=== PATIENT | male | born 1950 | race Caucasian/White ===

== ENCOUNTER → 2023-09-13 06:21 | Outpatient (REF) | payer MEDICARE, OTHER, SELFPAY ==
[2023-09-13 07:40] LABS: ALT (SGPT) 28 U/L (0-50); AST (SGOT) 27 U/L (17-59); Albumin 4.5 g/dl (3.5-5.0); Alkaline Phosphatase 80 U/L (38-126); Blood Urea Nitrogen 13 mg/dl (9-20); Calcium 9.2 mg/dl (8.4-10.2); Carbon Dioxide 28 mmol/L (22-30); Chloride 103 mmol/L (98-107); Glucose 170 mg/dl (70-99); HDL Cholesterol 39 mg/dl; LDL Cholesterol, Calculated 63 mg/dl; Potassium 4.6 mmol/L (3.5-5.1); Sodium 134 mmol/L (135-145); Total Bilirubin 1.4 mg/dl (0.2-1.3); Total Cholesterol 131 mg/dl (50-199); Total Protein 7.1 g/dl (6.3-8.2); Triglyceride 147 mg/dl (10-149); Very Low Density Lipoprotein 29 mg/dl (0-30); eGFR > 60.00
== END ==
LOC: REG 06:21
PROVIDERS: ATTENDING PHYSICIAN Internal Medicine
DX: Z00.00 Encounter for general adult medical examination without abnormal findings (principal); E11.9 Type 2 diabetes mellitus without complications; I35.0 Nonrheumatic aortic (valve) stenosis; E78.5 Hyperlipidemia, unspecified; R35.1 Nocturia; F41.9 Anxiety disorder, unspecified; Z68.26 Body mass index [BMI] 26.0-26.9, adult; Z23 Encounter for immunization; Z12.11 Encounter for screening for malignant neoplasm of colon; Z28.21 Immunization not carried out because of patient refusal
CPT/HCPCS: 36415; 80053; 80061; 83036

== ENCOUNTER → 2023-12-07 06:21 | Outpatient (REF) | payer MEDICARE, OTHER, SELFPAY ==
[2023-12-07 07:12] LABS: % Basophils 0.8 % (0-2); % Immature Granulocytes 0.3 % (0-0.5); % Lymphocytes 29.3 % (20.5-51.1); % Monocytes 11.6 % (1.7-9.3); Absolute Basophils 0.1 10^3/uL (0-0.2); Absolute Eosinophils 0.1 10^3/uL (0-0.7); Absolute Lymphocytes 2.1 10^3/uL (1.2-3.4); Absolute Monocytes 0.8 10^3/uL (0.1-0.6); Hematocrit 42.1 % (39.0-52.0); Hemoglobin 14.1 g/dL (13.0-18.0); Mean Corp Hgb Conc. 33.5 g/dL (33.0-37.0); Mean Corpuscular Hgb 30.5 pg (27.0-31.0); Mean Corpuscular Volume 90.9 fL (80.0-94.0); Nucleated Red Blood Cells % 0 % (-); Platelet Count 195 10^3/uL (130-400); Red Blood Cell Count 4.63 10^6/uL (4.70-6.10); Red Cell Dist. Width 12.1 % (11.5-14.5); White Blood Cell Count 7.1 10^3/uL (4.8-10.8)
[2023-12-07 07:48] LABS: Microalbumin, Random Urine 0.6 mg/dl (0.6-1.7); Microalbumin/creatinine Ratio 5.9 mg/g
[2023-12-07 08:33] LABS: PSA, Total - Screen 0.75 ng/ml (0.0-4.0); TSH Reflex To Free T4 2.53 uIU/ml (0.47-4.68)
[2023-12-07 08:46] LABS: Glycohemoglobin (HgbA1c) 7.9 % (4.0-5.6)
[2023-12-07 09:21] LABS: ALT (SGPT) 25 U/L (0-50); AST (SGOT) 32 U/L (17-59); Alkaline Phosphatase 82 U/L (38-126); Blood Urea Nitrogen 14 mg/dl (9-20); Calcium 9.7 mg/dl (8.4-10.2); Carbon Dioxide 27 mmol/L (22-30); Chloride 100 mmol/L (98-107); Glucose 147 mg/dl (70-99); Potassium 5.4 mmol/L (3.5-5.1); Sodium 137 mmol/L (135-145); Total Bilirubin 1.7 mg/dl (0.2-1.3); Total Protein 7.7 g/dl (6.3-8.2); eGFR > 60.00
== END ==
LOC: REG 06:21
PROVIDERS: ATTENDING PHYSICIAN Internal Medicine
DX: E11.9 Type 2 diabetes mellitus without complications (principal); E78.5 Hyperlipidemia, unspecified; R35.1 Nocturia
CPT/HCPCS: 36415; 80053; 82043; 82570; 83036; 84443; 85025; G0103

== ENCOUNTER → 2023-12-15 10:08 | Outpatient (REF) | payer MEDICARE, OTHER, SELFPAY ==
[2023-12-15 12:10] LABS: ALT (SGPT) 24 U/L (0-50); AST (SGOT) 28 U/L (17-59); Alkaline Phosphatase 85 U/L (38-126); Blood Urea Nitrogen 19 mg/dl (9-20); Calcium 9.9 mg/dl (8.4-10.2); Carbon Dioxide 29 mmol/L (22-30); Chloride 98 mmol/L (98-107); Glucose 195 mg/dl (70-99); Potassium 5.1 mmol/L (3.5-5.1); Sodium 137 mmol/L (135-145); Total Bilirubin 1.7 mg/dl (0.2-1.3); Total Protein 7.6 g/dl (6.3-8.2); eGFR > 60.00
== END ==
LOC: REG 10:08
PROVIDERS: ATTENDING PHYSICIAN Internal Medicine
DX: E87.5 Hyperkalemia (principal)
CPT/HCPCS: 36415; 80053

== ENCOUNTER 2024-02-02 20:06 | Emergency (ER) | payer MEDICARE, OTHER, SELFPAY ==
[2024-02-02 20:10] VITALS: BP 123/65
--- NOTE | 2024-02-02 20:14 | ED.PDOC.TRB ---
ED Provider Triage
-
Patient seen by provider in Triage?: Seen in Triage
:
A medical screening examination has been initiated by a qualified medical provider. Based on the assessment performed at this time, it has been determined that an emergent medical condition may exist and the patient has been informed that further
medical evaluation and possible additional diagnostic testing may be needed.
Patient is a 73-year-old male with history of kidney stones last kidney stone was 1989. Patient started with right flank pain today around 12 PM associate with nausea and vomiting consistent with similar pain in the past. No fever or chills. No
radiation or testicular pain. he went to urgent care was sent here.
Patient in no acute distress, afebrile basic labs ordered along with CAT scan abdomen without contrast and urinalysis.
[2024-02-02 20:24] LABS: % Basophils 0.3 % (0-2); % Immature Granulocytes 0.3 % (0-0.5); % Lymphocytes 9.1 % (20.5-51.1); % Neutrophils 82.3 % (42.2-75.2); Absolute Lymphocytes 1.1 10^3/uL (1.2-3.4); Absolute Neutrophils 9.8 10^3/uL (1.4-6.5); Hematocrit 37.3 % (39.0-52.0); Hemoglobin 13.1 g/dL (13.0-18.0); Mean Corp Hgb Conc. 35.1 g/dL (33.0-37.0); Mean Corpuscular Hgb 30.6 pg (27.0-31.0); Mean Corpuscular Volume 87.1 fL (80.0-94.0); Mean Platelet Volume 11.2 fL (7.4-10.4); Nucleated Red Blood Cells % 0 % (-); Platelet Count 192 10^3/uL (130-400); Red Blood Cell Count 4.28 10^6/uL (4.70-6.10); Red Cell Dist. Width 12.1 % (11.5-14.5); White Blood Cell Count 11.9 10^3/uL (4.8-10.8)
[2024-02-02 20:42] LABS: ALT (SGPT) 25 U/L (0-50); AST (SGOT) 28 U/L (17-59); Albumin 4.7 g/dl (3.5-5.0); Alkaline Phosphatase 75 U/L (38-126); Blood Urea Nitrogen 18 mg/dl (9-20); Calcium 9.8 mg/dl (8.4-10.2); Carbon Dioxide 26 mmol/L (22-30); Chloride 98 mmol/L (98-107); Glucose 201 mg/dl (70-99); Sodium 137 mmol/L (135-145); Total Bilirubin 1.3 mg/dl (0.2-1.3); eGFR > 60.00
[2024-02-02 22:56] VITALS: BP 154/77
[2024-02-02 23:00] LABS: Urine Albumin Negative (Neg - Trace); Urine Bilirubin Negative (Negative); Urine Character Clear (Clear); Urine Color Yellow; Urine Glucose Trace (Negative); Urine Ketone Negative (Negative); Urine Leukocyte Negative (Negative); Urine Nitrite Negative (Negative); Urine Occult Blood 3+ (Negative); Urine Urobilinogen Negative (Neg - 1+)
--- NOTE | 2024-02-02 23:02 | ED.GENMED ---
History of Present Illness
General
Chief Complaint: Flank Pain
Source: patient
Exam Limitations: none
Time Seen by Provider: 02/02/24 22:34
History of Present Illness
History of Present Illness:
73-year-old male presents after he had acute onset of right flank pain earlier today. Went to urgent care and got some pain medication nausea medication because he was vomiting. Patient's pain seem better but around 6:00 the pain came back with a
vengeance it was severe. On his way over and on arrival his pain resolved. He now feels much better. Further nausea or vomiting. No fevers.
Past History
Past History
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
ED Past Surgical History: Orthopedic
Social History
Tobacco: Non-smoker
Alcohol: None
Drug: None
Living: with family
Family History
Family History: Other (Noncontributory)
Phy Exam
Physical Exam
Physical Exam:
CONSTITUTIONAL Vital signs reviewed, Patient alert and oriented to person, place and time. Well-appearing
HEAD atraumatic, normocephalic.
EYES eyelids normal to inspection, Extraocular muscles intact, Conjunctiva normal, Sclera normal.
NECK normal range of motion, Trachea midline, no jugular venous distention.
RESP no respiratory distress
BACK No obvious deformities, no flank pain
Abdomen soft and nontender
UPPER EXTREMITY Gross Range of motion normal, gross motor strength normal
LOWER EXTREMITY Gross range of motion normal, Gross motor strength normal
NEURO Speech normal, No focal motor deficits include, Le coma scale 15, Memory normal, Cranial Nerves intact to screening exam.
SKIN Skin warm, dry, and normal in color.
PSYCHIATRIC Patient oriented to person place and time, Normal affect.
Course
Orders/Labs/Results
Orders:
Orders
02/02/24 20:12
CT Abd/pelvis Wo Iv Cont Urgent
Comment:
Reason For Exam: kidney stone
02/02/24 20:17
Complete Blood Count/With Diff Urgent
Comprehensive Metabolic Panel Urgent
02/02/24 22:54
Urine Culture Reflexed from UA [Urinalysis Reflex To Culture] Urgent
Date Specimen was Collected: 02/02/24
Time Specimen was Collected: 20:12
Abnormal Lab Results
02/02/24 02/02/24
20:17 22:54
WBC 11.9 H 10^3/uL
(4.8-10.8)
RBC 4.28 L 10^6/uL
(4.70-6.10)
Hct 37.3 L %
(39.0-52.0)
MPV 11.2 H fL
(7.4-10.4)
Absolute Neuts (auto) 9.8 H 10^3/uL
(1.4-6.5)
Absolute Lymphs (auto) 1.1 L 10^3/uL
(1.2-3.4)
Absolute Monos (auto) 1.0 H 10^3/uL
(0.1-0.6)
Neutrophils % 82.3 H %
(42.2-75.2)
Lymphocytes % 9.1 L %
(20.5-51.1)
Glucose 201 H mg/dl
(70-99)
Ur Occult Blood Reflex 3+ A
(Negative)
Urine Glucose Trace A
(Negative)
02/02/24 20:17
02/02/24 20:17
Vital Signs
Initial and Last Documented VS:
Initial Vital Signs
Temp Pulse Resp BP Pulse Ox
98.3 F 80 20 123/65 98
02/02/24 20:10 02/02/24 20:10 02/02/24 20:10 02/02/24 20:10 02/02/24 20:10
Last Documented Vital Signs
Temp Pulse Resp BP Pulse Ox
98.3 F 69 18 154/77 96
02/02/24 20:10 02/02/24 22:56 02/02/24 22:56 02/02/24 22:56 02/02/24 22:56
MDM/Problems Addressed
MDM/Problems Addressed:
Nephrolithiasis
*Radiology
Radiology exam reviewed: radiology read reviewed
*Pulse Oximetry
Patient hypoxic: no
*Critical Care Note
Total Time (30-74mins, 75-104mins- exclusive of procedures): Not Applicable
Data Reviewed
Source: patient
Patient Management
Escalation/DeEscalation of care consider admission/obs:
Pain now well-controlled. No further vomiting. Will treat with Flomax and add some pain medication as needed. Okay for outpatient management
ED Attending Note
-
Portions of this chart may have been created with voice recognition software.� Occasional wrong word or��sound alike� substitutions may have occurred due to the inherent limitations of voice recognition software.
Discharge Plan
Departure
Patient Disposition: Home (Routine Discharge)
Date of Disposition: 02/02/24
Time of Disposition: 23:04
Patient with high blood pressure during this ER visit?: Yes
Discharge Problem:
Nephrolithiasis
Instructions: Kidney Stones (DC), BLOOD PRESSURE, Narcotic Pain Medication
Prescriptions:
New
tamsulosin [Flomax] 0.4 mg capsule
0.4 mg PO HS Qty: 20 0RF
hydrocodone-acetaminophen 5-325 mg tablet
2 tab PO Q6H PRN (Reason: Pain) Qty: 14 0RF
No Action
.A Statin ? Name
1 tab PO DAILY
calcium-vitamin D3-vitamin K 1 EACH tablet,chewable
1 ea PO DAILY
valacyclovir 1,000 MG tablet
1,000 mg PO TID Qty: 21 0RF
Rx Instructions:
for onset of shingles
Referrals:
Victoria Varela NP [Family Provider] -
Activity Restrictions/Additional Instructions:
Please see your doctor in follow-up in the next 3 to 5 days. Return immediately for intractable vomiting, worsening pain, fevers or any other concerns.
Interventions
Interventions:
*Risk Screen - Suicide Last Done: 02/02/24 20:10
*General Assessment Last Done: 02/02/24 20:10
*Neglect/Abuse Screening Last Done: 02/02/24 20:10
PP-Tumvpt-Ebeavgpgpe Assessment Last Done: 02/02/24 22:56
ED-Male Genitourinary Assessment Last Done: 02/02/24 22:56
Discharge Date and Time
Print Language: TAMAZIGHT
[2024-02-02 23:05] LABS: Urine Mucus Few
[2024-02-02 23:06] LABS: Urine Red Blood Cell 60-70 /HPF (0-2)
[2024-02-02 23:07] LABS: Urine White Cell 0-2 /HPF (0-5)
[2024-02-02 23:09] LABS: Urine Calcium Oxalate Crystals Seen
[2024-02-02 23:10] LABS: Urine Bacteria Moderate (Negative)
[2024-02-02] MEDS: MOTRIN 600 MG PO (23:42)
[2024-02-02 23:45] VITALS: BP 130/72
== END 2024-02-02 23:46 | disposition home or self-care (01) ==
LOC: EMR 20:06
PROVIDERS: Emergency Medicine; EMERGENCY PHYSICIAN Emergency Medicine; FAMILY PHYSICIAN Internal Medicine
DX: N13.2 Hydronephrosis with renal and ureteral calculous obstruction (principal); E11.9 Type 2 diabetes mellitus without complications
CPT/HCPCS: 99284; 74176; 80053; 81003; 81015; 85025; 87086

== ENCOUNTER 2024-02-04 20:45 | Emergency (ER) | payer MEDICARE, OTHER, SELFPAY ==
[2024-02-04 20:49] VITALS: BP 152/95
--- NOTE | 2024-02-05 00:07 | ED.GENMED ---
History of Present Illness
General
Chief Complaint: Nasal Problem
Source: patient
Exam Limitations: none
Time Seen by Provider: 02/04/24 23:58
History of Present Illness
History of Present Illness:
See MDM
Past History
Past History
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
ED Past Surgical History: Orthopedic
Social History
Tobacco: Non-smoker
Alcohol: None
Drug: None
Living: with family
Family History
Family History: Other (Noncontributory)
Phy Exam
Physical Exam
Physical Exam:
See MDM
Course
Vital Signs
Initial and Last Documented VS:
Initial Vital Signs
Temp Pulse Resp BP Pulse Ox
98.0 F 83 16 152/95 97
02/04/24 20:49 02/04/24 20:49 02/04/24 20:49 02/04/24 20:49 02/04/24 20:49
Last Documented Vital Signs
Temp Pulse Resp BP Pulse Ox
98.0 F 83 16 152/95 97
02/04/24 20:49 02/04/24 20:49 02/04/24 20:49 02/04/24 20:49 02/04/24 20:49
MDM/Problems Addressed
Differential Diagnosis Includes:
HPI and MDM Narrative:
73-year-old male presenting for evaluation of accidental medicine injection. Patient reached for his nasal saline. However, he picked up a saline wound spray instead. Patient sprayed his nose with a saline wound spray and got nervous so he came
in for evaluation. He denies any complaint
Nares are clear no evidence of trauma. We discussed that this is the same active ingredient but under high-pressure.
Physical exam
General: Well appearing and non-toxic
HEENT: protecting airway. Nasal passages clear. No blood
Neck: appears supple
CV: No evidence of cyanosis
Resp: No accessory muscle use
Abd: Non-distended
Extremities: No deformities
Neuro: alert
Psych: Normal affect
Skin: Intact
Problems Addressed including Acute and Chronic Conditions affecting care:
1. Accidental medication injection
Acuity: acute
Prognosis: stable
Details: Patient used saline wound spray in his nose. No harm done
Patient was given verbal discharge instructions and walked out emergency department comfortably
Differential Diagnosis (but not limited to): Accidental drug injection, nasal trauma
Drug therapy (if applicable): OTC meds, please see d/c instruction regarding Rx drugs
Amount and/or Complexity of Data Reviewed
Clinical info obtained from: Patient
External data reviewed: N/A
Labs I independently reviewed (but not limited to): N/A
Radiology: N/A
Pulse Ox: not hypoxic
EKG independently reviewed: N/A
Mixer Attendant: N/A
Critical Care: N/A
Risk of Complication:
Social Determinants of health: Good social support
Discussed with other providers: N/A
Escalation of Care includes Admit/Obs: After being observed in the Emergency Department, pt stable for discharge.
Occasional wrong word or 'sound a like' substitutions may have occurred due to the inherent limitations of voice recognition software. Read the chart carefully and recognize, using context, where substitutions have occurred.
*Critical Care Note
Total Time (30-74mins, 75-104mins- exclusive of procedures): Not Applicable
ED Attending Note
-
Portions of this chart may have been created with voice recognition software.� Occasional wrong word or��sound alike� substitutions may have occurred due to the inherent limitations of voice recognition software.
Discharge Plan
Departure
Date of Disposition: 02/05/24
Time of Disposition: 00:10
Patient with high blood pressure during this ER visit?: Yes
Prescriptions:
No Action
.A Statin ? Name
1 tab PO DAILY
calcium-vitamin D3-vitamin K 1 EACH tablet,chewable
1 ea PO DAILY
valacyclovir 1,000 MG tablet
1,000 mg PO TID Qty: 21 0RF
Rx Instructions:
for onset of shingles
tamsulosin [Flomax] 0.4 mg capsule
0.4 mg PO HS Qty: 20 0RF
hydrocodone-acetaminophen 5-325 mg tablet
2 tab PO Q6H PRN (Reason: Pain) Qty: 14 0RF
Interventions
Interventions:
*Risk Screen - Suicide Last Done: 02/04/24 20:49
*General Assessment Last Done: 02/04/24 20:49
*Neglect/Abuse Screening Last Done: 02/04/24 20:49
*ED COVID-19 Vaccine History Last Done: 02/04/24 20:49
Discharge Date and Time
Print Language: ROMANIAN
== END 2024-02-05 00:26 | disposition home or self-care (01) ==
LOC: EMR 20:45
PROVIDERS: EMERGENCY PHYSICIAN Student in an Organized Health Care Education/Training Program; FAMILY PHYSICIAN Internal Medicine
DX: T50.991A Poisoning by other drugs, medicaments and biological substances, accidental (unintentional), initial encounter (principal); R03.0 Elevated blood-pressure reading, without diagnosis of hypertension
CPT/HCPCS: 99281

== ENCOUNTER → 2024-03-07 06:21 | Outpatient (REF) | payer MEDICARE, OTHER, SELFPAY ==
[2024-03-07 08:09] LABS: ALT (SGPT) 28 U/L (0-50); AST (SGOT) 31 U/L (17-59); Albumin 4.7 g/dl (3.5-5.0); Alkaline Phosphatase 72 U/L (38-126); Blood Urea Nitrogen 16 mg/dl (9-20); Calcium 9.3 mg/dl (8.4-10.2); Carbon Dioxide 26 mmol/L (22-30); Chloride 100 mmol/L (98-107); Direct Bilirubin 0.2 mg/dl (0.0-0.4); Glucose 129 mg/dl (70-99); Sodium 140 mmol/L (135-145); Total Bilirubin 1.7 mg/dl (0.2-1.3); Total Protein 7.2 g/dl (6.3-8.2); eGFR > 60.00
[2024-03-07 09:06] LABS: Glycohemoglobin (HgbA1c) 7.3 % (4.0-5.6)
== END ==
LOC: REG 06:21
PROVIDERS: ATTENDING PHYSICIAN Internal Medicine
DX: E11.9 Type 2 diabetes mellitus without complications (principal); E78.5 Hyperlipidemia, unspecified; R17 Unspecified jaundice
CPT/HCPCS: 36415; 80053; 82248; 83036

== ENCOUNTER → 2024-06-19 06:25 | Outpatient (REF) | payer MEDICARE, OTHER, SELFPAY ==
[2024-06-19 07:27] LABS: % Basophils 0.4 % (0-2); % Eosinophils 1.8 % (0-6); % Immature Granulocytes 0.1 % (0-0.5); % Lymphocytes 26.1 % (20.5-51.1); % Neutrophils 60.6 % (42.2-75.2); Absolute Eosinophils 0.1 10^3/uL (0-0.7); Absolute Lymphocytes 1.9 10^3/uL (1.2-3.4); Absolute Monocytes 0.8 10^3/uL (0.1-0.6); Absolute Neutrophils 4.4 10^3/uL (1.4-6.5); Hematocrit 43.8 % (39.0-52.0); Hemoglobin 14.8 g/dL (13.0-18.0); Mean Corp Hgb Conc. 33.8 g/dL (33.0-37.0); Mean Corpuscular Hgb 30.6 pg (27.0-31.0); Mean Corpuscular Volume 90.7 fL (80.0-94.0); Mean Platelet Volume 10.9 fL (7.4-10.4); Nucleated Red Blood Cells % 0 % (-); Platelet Count 212 10^3/uL (130-400); Red Blood Cell Count 4.83 10^6/uL (4.70-6.10); Red Cell Dist. Width 12.2 % (11.5-14.5); White Blood Cell Count 7.2 10^3/uL (4.8-10.8)
[2024-06-19 08:09] LABS: ALT (SGPT) 32 U/L (0-50); AST (SGOT) 30 U/L (17-59); Alkaline Phosphatase 78 U/L (38-126); Blood Urea Nitrogen 14 mg/dl (9-20); Calcium 9.6 mg/dl (8.4-10.2); Carbon Dioxide 28 mmol/L (22-30); Chloride 99 mmol/L (98-107); Glucose 146 mg/dl (70-99); HDL Cholesterol 38 mg/dl; LDL Cholesterol, Calculated 80 mg/dl; Potassium 4.3 mmol/L (3.5-5.1); Sodium 136 mmol/L (135-145); Total Bilirubin 1.9 mg/dl (0.2-1.3); Total Cholesterol 146 mg/dl (50-199); Total Protein 7.7 g/dl (6.3-8.2); Triglyceride 144 mg/dl (10-149); Very Low Density Lipoprotein 28 mg/dl (0-30); eGFR > 60.00
[2024-06-19 08:49] LABS: Glycohemoglobin (HgbA1c) 7.5 % (4.0-5.6)
== END ==
LOC: REG 06:25
PROVIDERS: ATTENDING PHYSICIAN Internal Medicine
DX: E11.69 Type 2 diabetes mellitus with other specified complication (principal); E78.5 Hyperlipidemia, unspecified; E80.4 Gilbert syndrome; N20.0 Calculus of kidney
CPT/HCPCS: 36415; 80053; 80061; 83036; 85025

== ENCOUNTER → 2024-10-16 16:07 | Outpatient (REF) | payer MEDICARE, OTHER, SELFPAY ==
[2024-10-16 16:29] LABS: % Basophils 0.5 % (0-2); % Eosinophils 1.3 % (0-6); % Immature Granulocytes 0.4 % (0-0.5); % Lymphocytes 20.5 % (20.5-51.1); % Monocytes 10.1 % (1.7-9.3); % Neutrophils 67.2 % (42.2-75.2); Absolute Eosinophils 0.1 10^3/uL (0-0.7); Absolute Lymphocytes 1.7 10^3/uL (1.2-3.4); Absolute Monocytes 0.8 10^3/uL (0.1-0.6); Absolute Neutrophils 5.6 10^3/uL (1.4-6.5); Hematocrit 39.9 % (39.0-52.0); Hemoglobin 13.4 g/dL (13.0-18.0); Mean Corp Hgb Conc. 33.6 g/dL (33.0-37.0); Mean Corpuscular Hgb 31.2 pg (27.0-31.0); Mean Corpuscular Volume 92.8 fL (80.0-94.0); Mean Platelet Volume 10.8 fL (7.4-10.4); Nucleated Red Blood Cells % 0 % (-); Platelet Count 211 10^3/uL (130-400); Red Cell Dist. Width 12.3 % (11.5-14.5); White Blood Cell Count 8.3 10^3/uL (4.8-10.8)
[2024-10-16 16:49] LABS: ALT (SGPT) 21 U/L (0-50); AST (SGOT) 23 U/L (17-59); Albumin 4.7 g/dl (3.5-5.0); Alkaline Phosphatase 55 U/L (38-126); Blood Urea Nitrogen 19 mg/dl (9-20); Calcium 9.5 mg/dl (8.4-10.2); Carbon Dioxide 29 mmol/L (22-30); Chloride 108 mmol/L (98-107); Glucose 171 mg/dl (70-99); Potassium 4.6 mmol/L (3.5-5.1); Sodium 143 mmol/L (135-145); Total Bilirubin 1.1 mg/dl (0.2-1.3); Total Protein 7.5 g/dl (6.3-8.2); eGFR > 60.00
== END ==
LOC: REG 16:07
PROVIDERS: ATTENDING PHYSICIAN Family Medicine; FAMILY PHYSICIAN Internal Medicine
DX: R10.32 Left lower quadrant pain (principal)
CPT/HCPCS: 36415; 80053; 85025

== ENCOUNTER → 2024-10-18 06:58 | Outpatient (REF) | payer MEDICARE, OTHER, SELFPAY | LOC: RAD 06:58 | PROVIDERS: ATTENDING PHYSICIAN Family Medicine | DX: R10.32 Left lower quadrant pain (principal) | CPT/HCPCS: 74177; Q9967 ==

== ENCOUNTER → 2024-12-19 06:17 | Outpatient (REF) | payer MEDICARE, OTHER, SELFPAY ==
[2024-12-19 07:37] LABS: Urine Character Clear (Clear)
[2024-12-19 07:52] LABS: ALT (SGPT) 20 U/L (0-50); AST (SGOT) 23 U/L (17-59); Albumin 4.9 g/dl (3.5-5.0); Alkaline Phosphatase 58 U/L (38-126); Blood Urea Nitrogen 15 mg/dl (9-20); Calcium 9.6 mg/dl (8.4-10.2); Carbon Dioxide 26 mmol/L (22-30); Chloride 105 mmol/L (98-107); Glucose 122 mg/dl (70-99); Potassium 5.0 mmol/L (3.5-5.1); Sodium 140 mmol/L (135-145); Total Protein 7.8 g/dl (6.3-8.2); eGFR > 60.00
[2024-12-19 09:10] LABS: Microalb - Urine Creatinine 147.600 mg/dl
[2024-12-19 09:45] LABS: Glycohemoglobin (HgbA1c) 7.0 % (4.0-5.6)
[2024-12-19 09:51] LABS: Microalbumin, Random Urine 2.1 mg/dl (0.6-1.7)
== END ==
LOC: REG 06:17
PROVIDERS: ATTENDING PHYSICIAN Internal Medicine
DX: E11.69 Type 2 diabetes mellitus with other specified complication (principal); Z00.00 Encounter for general adult medical examination without abnormal findings; E78.5 Hyperlipidemia, unspecified; E80.4 Gilbert syndrome; I35.0 Nonrheumatic aortic (valve) stenosis; F32.A Depression, unspecified; Z87.442 Personal history of urinary calculi
CPT/HCPCS: 36415; 80053; 81003; 82043; 82570; 83036

== ENCOUNTER → 2025-05-30 06:47 | Outpatient (REF) | payer MEDICARE, OTHER, SELFPAY | LOC: RCS 06:47 | PROVIDERS: ATTENDING PHYSICIAN Internal Medicine; FAMILY PHYSICIAN Internal Medicine | DX: I35.0 Nonrheumatic aortic (valve) stenosis (principal); I49.3 Ventricular premature depolarization | CPT/HCPCS: 93306 ==